=== PATIENT | female | born 1955 | race American Indian/Alaskan Native ===

== ENCOUNTER 2017-04-02 08:46 | Outpatient (CLI) | payer MEDICARE ==
--- NOTE | 2017-04-02 10:00 | XRay Report ---
Bilateral knee: History: Bilateral knee pain. Findings: Minimal narrowing of the medial compartment right and left knee joint. Anterior spur at the patella of left and right knee. No joint effusion or soft tissue calcification. Impression: Mild degenerative changes medial compartment and patellofemoral compartment right knee joint
== END 2017-04-02 08:47 | disposition home or self-care (01) ==
LOC: SPVIMAG 08:46
PROVIDERS: ATTEND Orthopaedic Surgery
DX: M17.11 Unilateral primary osteoarthritis, right knee (principal); M25.562 Pain in left knee

== ENCOUNTER 2017-12-31 10:40 | Outpatient (CLI) | payer MEDICARE | END 2017-12-31 10:41 | disposition home or self-care (01) | LOC: MRI 10:40 | PROVIDERS: ATTEND Specialist | DX: R41.1 Anterograde amnesia (principal); I10 Essential (primary) hypertension; J44.9 Chronic obstructive pulmonary disease, unspecified; E78.5 Hyperlipidemia, unspecified | CPT/HCPCS: 70551 ==